=== PATIENT | female | born 1990 | race Two or more races ===

== ENCOUNTER 2023-03-29 09:09 | Emergency (ER) | payer MEDICAID, OTHER ==
[~2023-03-29] VITALS: Ht 154.9 cm; Wt 80.0 kg
[2023-03-29 09:24] VITALS: PULSE 88
[2023-03-29 09:56] VITALS: BP 129/88; RESP 16; O2SAT 98
[2023-03-29] MEDS ORDERED: CEPH500C PO (10:39)
[2023-03-29] MEDS ORDERED: IBUP-1456 PO (10:39)
== END 2023-03-29 10:50 | disposition home or self-care (01) ==
LOC: EDBD 09:09 → ER 09:09
DX: S29.012A Strain of muscle and tendon of back wall of thorax, initial encounter (principal); S80.01XA Contusion of right knee, initial encounter; S80.02XA Contusion of left knee, initial encounter; S40.812A Abrasion of left upper arm, initial encounter; M62.830 Muscle spasm of back; V43.52XA Car driver injured in collision with other type car in traffic accident, initial encounter; Y93.89 Activity, other specified; Y92.89 Other specified places as the place of occurrence of the external cause; Y99.8 Other external cause status
CPT/HCPCS: 72070; 73562